=== PATIENT | female | born 1945 ===

== ENCOUNTER 2023-08-21 06:08 | Inpatient (IN) | payer MEDICARE, BC, SELFPAY ==
[2023-08-15 12:34] VITALS: BMI 27.2
[2023-08-15 14:05] LABS: Hematocrit 42.1 % (37.0-47.0); Hemoglobin 14.6 g/dL (12.0-16.0); Mean Corp Hgb Conc. 34.7 g/dL (33.0-37.0); Mean Corpuscular Hgb 29.9 pg (27.0-31.0); Mean Corpuscular Volume 86.3 fL (81.0-99.0); Mean Platelet Volume 10.3 fL (7.4-10.4); Platelet Count 243 10^3/uL (130-400); Red Blood Cell Count 4.88 10^6/uL (4.20-5.40); Red Cell Dist. Width 12.4 % (11.5-14.5); White Blood Cell Count 6.4 10^3/uL (4.8-10.8)
[2023-08-15 14:12] LABS: INR 0.94; PT 12.6 Sec (11.4-14.6)
[2023-08-15 14:13] LABS: APTT 28.4 Sec (23.4-35.0)
[2023-08-15 14:23] LABS: ALT (SGPT) 52 U/L (0-35); AST (SGOT) 36 U/L (14-36); Albumin 4.6 g/dl (3.5-5.0); Alkaline Phosphatase 104 U/L (38-126); Blood Urea Nitrogen 12 mg/dl (7-17); Carbon Dioxide 31 mmol/L (22-30); Chloride 97 mmol/L (98-107); Estimated Creatinine Clearance 73 ml/min; Glucose 101 mg/dl (70-99); Potassium 4.2 mmol/L (3.5-5.1); Sodium 139 mmol/L (135-145); Total Bilirubin 0.9 mg/dl (0.2-1.3); Total Protein 7.4 g/dl (6.3-8.2); eGFR > 60.00
[2023-08-21] VITALS (19 sets, daily range): BP systolic 100–147; BP diastolic 44–76; BMI 27.2; BMI 28.0
[2023-08-21] MEDS: TYLENOL 1000 MG PO (06:39)
[2023-08-21] MEDS: NEURONTIN 300 MG PO (06:39)
[2023-08-21] MEDS: HEPARIN 5000 UNITS SC ×2 (06:40→20:04)
[2023-08-21] MEDS: NORMOSOL-R 1000 IV (06:51)
--- NOTE | 2023-08-21 10:18 | W.IMMPOSTOP ---
Surgical Immed Post Op Note
-
Primary Surgeon: Elbert Gonzalez MD
Assisting Surgeon: Teo Tidwell
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
Post-op Diagnosis: Same
Procedure Performed: Minimally invasive sublobar resection of the right upper lobe tumor and mediastinal lymph node dissection
Anesthesia Type: General
Specimen / Cultures: Right upper lobe tumor and mediastinal lymph nodes
Estimated Blood Loss: 30 cc
Complications: None
Operative Findings: Right upper lobe tumor.
--- NOTE | 2023-08-21 11:05 | OR.RPT ---
Operative Report
Operative Report
Date of Operation: August 21, 2023
Patient�s Name: Emerald Egan
Preoperative Diagnosis: Right lobe lung tumor
Postoperative Diagnosis: Same with final pathology pending
Surgeon: Dr. Gonzalez
Operation: Minimally invasive segmental resection of right lobe lung tumor and mediastinal lymph node dissection
Anesthesia: Double lumen tracheal anesthesia
Estimated Blood Loss: 30 cc's
Drains: 32 Niuean chest tube
Specimen: Right lobe tumor and mediastinal lymph nodes
Complications: None
Procedure:
The patient was taken to the operating room and placed in the usual supine position. After adequate double-lumen tracheal anesthesia was established, the patient was placed in the left decubitus position with the right chest upright. The right chest
was prepped and draped in the usual sterile fashion. A 7 cm mid-axillary incision was made with a No.10 blade, which was taken through the skin into the subcutaneous tissue. The underlying serratus anterior muscle was identified over the 5th
intercostal space. This was split along the course of the muscle fibers and the subcutaneous tissue. The serratus anterior muscle space was entered and flaps were created anteriorly and posteriorly. The right chest was entered by transecting the
intercostal muscle and a pediatric Finochietto was placed to spread the ribs gently. Using long instruments, the right chest was explored. A small tumor in the medial aspect of the right upper lobe apex was identified. The tumor was carefully
resected in a segmental fashion using a dissector and an Endo DAVID purple stapler. The tumor was resected and sent to the pathology department. Next, the mediastinal lymph node dissection was performed by taking the lymph nodes from stations 7, 4R,
2R, and 10R. Hemostasis was obtained. A 32 Niuean chest was placed through the anterior thoracotomy incision and anchored to the skin using a #2-0 Prolene stitch. The ribs were re-approximated with number 1 Vicryl in a transcostal fashion. The
serratus anterior muscle was re-approximated with number 1 Vicryl in a running fashion. The fascia was approximated with # 1 Vicryl in a running fashion. The subcutaneous tissue was re-approximated with number 3 Vicryl in a running fashion. The skin
was approximated with # 4 Monocryl in a running subcuticular fashion. The chest was connected to a Pleur-evac. No air leak was noted. No dressings were applied. The patient was placed back in the supine position and extubated without any problems.
The final needle, sponge, and instrument counts were correct. The patient was transferred to the recovery room.
[2023-08-21] MEDS: D5/0.9% SODIUM CHLORIDE 1000 IV ×2 (11:40→23:04)
[2023-08-21] MEDS: NEURONTIN PO (16:09)
[2023-08-21] MEDS: TYLENOL PO ×3 (16:09→23:06)
[2023-08-21] MEDS: LIPITOR 10 MG PO (18:04)
[2023-08-21] MEDS: ANCEF 10 IV ×2 (18:04→23:04)
[2023-08-21] MEDS: TYLENOL 650 MG PO (20:04)
[2023-08-21] MEDS: COLACE PO (20:04)
[2023-08-21] MEDS: NEURONTIN 200 MG PO (20:04)
[2023-08-22] VITALS (10 sets, daily range): BP systolic 107–139; BP diastolic 42–58; PULSE 70–73; O2SAT 97–98; BMI 28.8
--- NOTE | 2023-08-22 00:18 | PTCARENOTE ---
Received pt at start of shift. No assessment changed. CT to water seal, no additional drainage. Dressing with minimal drainage. No c/o pain. SR BBB prolonged QT. Remains on 2LNC. Burns in place draining yellow. No other issues. will monitor
[2023-08-22] MEDS: TYLENOL 650 MG PO ×4 (04:00→23:43)
[2023-08-22 05:29] LABS: Hematocrit 26.4 % (37.0-47.0); Mean Corp Hgb Conc. 34.1 g/dL (33.0-37.0); Mean Corpuscular Hgb 30.3 pg (27.0-31.0); Mean Corpuscular Volume 88.9 fL (81.0-99.0); Platelet Count 142 10^3/uL (130-400); Red Blood Cell Count 2.97 10^6/uL (4.20-5.40); Red Cell Dist. Width 12.8 % (11.5-14.5); White Blood Cell Count 9.8 10^3/uL (4.8-10.8)
[2023-08-22 06:13] LABS: Blood Urea Nitrogen 12 mg/dl (7-17); Calcium 6.4 mg/dl (8.4-10.2); Carbon Dioxide 22 mmol/L (22-30); Chloride 108 mmol/L (98-107); Estimated Creatinine Clearance 73 ml/min; Sodium 137 mmol/L (135-145); eGFR > 60.00
--- NOTE | 2023-08-22 06:16 | DOWNTIME ---
There was a [employer] Client [employer] Downtime on 08/22/2023 from 0100 to 08/22/2023 at 0439. Downtime documentation of patient's care, including medication administrations, has been reconciled in the electronic record per guidelines. Refer to the
patient's paper chart under the miscellaneous tab to see printed paper medication records and downtime forms.
[2023-08-22 06:49] LABS: Hematocrit 32.1 % (37.0-47.0); Hemoglobin 11.2 g/dL (12.0-16.0); Mean Corp Hgb Conc. 34.9 g/dL (33.0-37.0); Mean Corpuscular Hgb 30.4 pg (27.0-31.0); Mean Platelet Volume 10.3 fL (7.4-10.4); Platelet Count 198 10^3/uL (130-400); Red Blood Cell Count 3.69 10^6/uL (4.20-5.40); Red Cell Dist. Width 12.7 % (11.5-14.5); White Blood Cell Count 12.1 10^3/uL (4.8-10.8)
[2023-08-22 06:56] LABS: INR 1.19; PT 14.9 Sec (11.4-14.6)
[2023-08-22 07:14] LABS: Blood Urea Nitrogen 15 mg/dl (7-17); Calcium 8.5 mg/dl (8.4-10.2); Carbon Dioxide 31 mmol/L (22-30); Chloride 101 mmol/L (98-107); Estimated Creatinine Clearance 73 ml/min; Glucose 162 mg/dl (70-99); Potassium 3.8 mmol/L (3.5-5.1); Sodium 134 mmol/L (135-145); eGFR > 60.00
[2023-08-22] MEDS: COLACE PO ×2 (09:00→20:04)
[2023-08-22] MEDS: NEURONTIN 200 MG PO ×2 (09:01→20:05)
[2023-08-22] MEDS: ORETIC PO (09:03)
[2023-08-22] MEDS: PEPCID PO (09:03)
[2023-08-22] MEDS: HEPARIN 5000 UNITS SC (09:04)
[2023-08-22] MEDS: ANCEF 10 IV (09:05)
--- NOTE | 2023-08-22 11:43 | CM ---
Patient with Dx Right lobe lung tumor who is s/p segmental resection right lobe lung tumor and mediastinal LN dissection. O2 2L. Chest tube. Receiving IVF, IV Abx.
Met with patient who was OOB sitting in chair.
The patient resides with her in a 2 story house with no LUCY.
The patient has been independent for ADLs and ambulation.
She is active, goes to gym with her and drives.
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 Patient shares that has been anxious since she was hospitalized. Patient says she has good support at home from daughter Daphney who lives nearby, and her neighbors.
DME - RW, SPC, quad cane, walk-in shower
No prior VN or SNF
PCP - [facility]
Pharmacy - [facility], [address], [place]
Offered VN and patient declined.
Plan home.
[2023-08-22] MEDS: TYLENOL PO ×2 (12:22→16:40)
--- NOTE | 2023-08-22 13:39 | W.PN.GENERIC ---
Assessment / Plan
-
S/p resection of the right upper lobe tumor and mediastinal lymph node dissection POD #1
Stable. High blood output due to mobilizing periop blood lose in the chest since surgery vs. active bleeding
THere is no evidence of active bleeding
Will check another CXR to make sure she is not pooling blood in the chest
Encourage pulmonary toiler
If rpt CXR ok, dc allison, simin, oob and ambulate
Dw w/ RN and family
Physician Progress Note
Subjective
No complaints. Hemodynamically stable. No SOB and good pain control
Objective
Vital Signs
Temp Pulse Resp BP Pulse Ox
98.1 F 57 22 107/58 98
08/22/23 11:05 08/22/23 08:00 08/22/23 08:00 08/22/23 08:00 08/22/23 08:00
Lab Results
08/22/23 06:35
08/22/23 06:35
Lungs - CTA
Heart - RRR
Chest tube with no airleak. There is gross blood in the pleurovac ~ 400 cc since surgery.
[2023-08-22] MEDS: D5/0.9% SODIUM CHLORIDE IV (14:47)
[2023-08-22] MEDS: LIPITOR PO (16:40)
[2023-08-22] MEDS: NEURONTIN PO (16:40)
[2023-08-23] MEDS: TYLENOL PO (04:56)
--- NOTE | 2023-08-23 04:57 | PTCARENOTE ---
Addendum entered by Otilio Murillo RN 08/23/23 05:03:
Chest tube dressing with large old drainage. No crepitus.
Original Note:
Chest tube remains to water seal. Serosanginous output. Denies SOB. Reports minimal pain. Tylenol given as ordered. Up ad kiana independently. Call joaquin within reach. Pt calls appropriately.
[2023-08-23 05:59] LABS: Hematocrit 31.3 % (37.0-47.0); Mean Corp Hgb Conc. 35.1 g/dL (33.0-37.0); Mean Corpuscular Hgb 30.6 pg (27.0-31.0); Mean Corpuscular Volume 87.2 fL (81.0-99.0); Mean Platelet Volume 10.4 fL (7.4-10.4); Platelet Count 186 10^3/uL (130-400); Red Blood Cell Count 3.59 10^6/uL (4.20-5.40); White Blood Cell Count 9.5 10^3/uL (4.8-10.8)
[2023-08-23 07:51] VITALS: BP 120/68
[2023-08-23] MEDS: COLACE 100 MG PO (08:37)
[2023-08-23] MEDS: TYLENOL 650 MG PO ×2 (08:37→13:48)
[2023-08-23] MEDS: PEPCID 20 MG PO (08:37)
[2023-08-23] MEDS: NEURONTIN 200 MG PO (08:38)
[2023-08-23] MEDS: ORETIC 25 MG PO (08:38)
--- NOTE | 2023-08-23 09:51 | PN.CDI ---
CDI
- -
CDI:
Physician Documentation Request
Admit Date: 08/21/23 06:08
Dear Doctor Carlos,
Please review the following and provide your response in the progress notes.
Clinical Indicators:
Pt admitted with upper lobe lung tumor suspicious for malignancy s/p Resection on 08/20
Progress note 08/21,' High blood output due to mobilizing periop blood loss in the chest since surgery vs. active bleeding...There is gross blood in the pleurovac ~ 400 cc since surgery....'
Hemoglobin/Hematocrits below
08/15/23 08/22/23 08/22/23
12:30 05:19 06:35
Hgb 14.6 9.0 L D 11.2 L D
Hct 42.1 26.4 L 32.1 L
08/23/23
05:40
Hgb 11.0 L
Hct 31.3 L
Please provide a diagnosis for the above blood loss and abnormal lab values:
Acute blood loss anemia
Abnormal lab value only
Other
Use of terms such as suspected, likely, concern for, or probable (associated with a specific diagnosis that is being evaluated, monitored, or treated as if it exists) are acceptable and can be coded in the inpatient setting, when documented at the
time of discharge.
Thank you,
Leigh Castle RN
CDI Specialist
[facility] [facility]
Please use your independent medical judgment in providing your response.
--- NOTE | 2023-08-23 10:01 | PN.CDI ---
CDI
- -
CDI:
Physician Documentation Request
Admit Date: 08/21/23 06:08
Dear Doctor Carlos,
Please review the following and provide your response in the progress notes.
Clinical Indicators:
The diagnosis of Apical pneumothorax was included in the signed CXR 08/20 & 08/21.
Additional clinical indicators in the chart include:
Pt admitted with upper lobe lung tumor suspicious for malignancy s/p Resection on 08/20
CXR 08/20, ' Tiny postoperative right apical pneumothorax with a right chest tube in place.'
CXR 08/21, ' Tiny right apical pneumothorax. Less than 5%. New...'
Progress note 08/21, '... Encourage pulmonary toiler...'
Please indicate in your progress notes if you are in agreement that the above diagnosis is valid for this patient:
____ - Apical pneumothorax is a valid diagnosis (Please include it in your progress notes)
____ - Apical Pneumothorax is not a valid diagnosis for this patient
____ - Other
Use of terms such as suspected, likely, concern for, or probable are acceptable for a diagnosis that is being evaluated, monitored or treated as if it exists and can be coded in the inpatient setting, when documented at the time of discharge.
Thank you,
Leigh Castle RN
CDI Specialist
[place] [facility]
Please use your independent medical judgment in providing your response.
[2023-08-23 14:06] VITALS: BP 119/51; PULSE 64; O2SAT 97
--- NOTE | 2023-08-23 14:11 | PTOTSP ---
Pt is independent with all mobility including managing stairs, and does not require any assistive devices. No further skilled PT needs were identified at this time. PT will sign off.
--- NOTE | 2023-08-23 14:33 | W.DS.TRANS ---
DC Summary - Heel Slugger
-
Discharge Instructions:
Sleep Apnea Risk Low
Discharge Diagnosis/Procedures lung mass
Diet Regular
Activity No strenuous activity,As tolerated
Driving Restrictions Not until seen by your Dr
Bathing Restrictions OK to Shower
Instructions:
Stand-Alone Forms:
Changes to Home Medications: No
Discharge Medications:
DC Medications w/original date entered in [facility]
Co Q-10 1 dose PO .3 DAYS A WEEK Supplement 08/14/23
Fish Oil 1 dose PO DAILY Supplement 08/14/23
Vitamin C 1 dose PO DAILY Supplement 08/14/23
Vitamin D3 1 dose PO DAILY Supplement 08/14/23
aspirin 81 mg chewable tablet 81 mg PO .3 DAYS A WEEK Blood Clot Prevention/Tx 08/14/23
hydrochlorothiazide 25 mg tablet 25 mg PO DAILY Fluid Retention/Swelling 08/14/23
gjgitudkfkqn-quihtvwv-vkefzs tablet 1 tab PO DAILY Supplement 08/14/23
omeprazole 20 mg capsule,delayed release 20 mg PO PRN PRN reflux 08/14/23
simvastatin 20 mg tablet 20 mg PO QPM High Cholesterol 08/14/23
Home Medication Changes
Pending Results: No
--- NOTE | 2023-08-23 14:33 | W.PN.GENERIC ---
Assessment / Plan
-
Stable. CHest tube removed
Dec in Hg secondary to perioperative blood loss without significance
Small PTX is expected after chest tube surgery
DC home today
Physician Progress Note
Subjective
no complaints
Objective
Vital Signs
Temp Pulse Resp BP Pulse Ox
97.2 F 57 16 120/68 96
08/23/23 07:51 08/23/23 07:51 08/23/23 07:51 08/23/23 07:51 08/22/23 20:21
Lab Results
08/23/23 05:40
08/22/23 06:35
Lungs- CTA
Heart - RRR
[2023-08-23 15:15] VITALS: BP 123/71
--- NOTE | 2023-08-23 15:41 | CM ---
Patient with Dx Right lobe lung tumor who is s/p segmental resection right lobe lung tumor and mediastinal LN dissection. Room air. Chest tube discontinued. PT notes 08/22; Pt is independent with all mobility including managing stairs, and does
not require any assistive devices.
Met with patient, and daughter; the patient says she feels ready for d/c home today. IMM completed. She says she was given some dressing materials by MD for chest tube site. Offered VN again and patient declined.
Plan home today.
--- NOTE | 2023-08-23 16:44 | PTCARENOTE ---
chest tube removed by Dr LEES earlier today and portable chest x ray done. pt discharged. instructions given to pt and verbalized understanding. dressing over chest tube site intact with no drainage. ivs removed. left with and daughter via
wheelcjhair.
== END 2023-08-23 17:13 | disposition home or self-care (01) | DRG 165 ==
LOC: IMU 06:08
PROVIDERS: ADMITTING PHYSICIAN Surgery; FAMILY PHYSICIAN Internal Medicine
PROC: 0BBC0ZZ Excision of Right Upper Lung Lobe, Open Approach (ICD-10-PCS; 2023-08-21)
PROC: 07B70ZX Excision of Thorax Lymphatic, Open Approach, Diagnostic (ICD-10-PCS; 2023-08-21)
DX: C34.11 Malignant neoplasm of upper lobe, right bronchus or lung (principal); I10 Essential (primary) hypertension; J44.9 Chronic obstructive pulmonary disease, unspecified; K21.9 Gastro-esophageal reflux disease without esophagitis; Z85.118 Personal history of other malignant neoplasm of bronchus and lung
CPT/HCPCS: 88305; 88307; 36415; 71045; 80048; 80053; 85027; 85610; 85730; 86850; 86900; 86901; 88313; 88341; 88342; 97163; 97167; 97530; C1729